=== PATIENT | female | born 1965 | race Caucasian/White ===

== ENCOUNTER → 2016-04-15 | Outpatient (CLI) | payer OTHER | END | disposition disaster alternative care site (69) | LOC: LFPA 15:32 | DX: R10.11 Right upper quadrant pain (principal) ==

== ENCOUNTER → 2016-04-17 | Outpatient (CLI) | payer OTHER | END | disposition disaster alternative care site (69) | LOC: GRAD 09:30 | DX: R74.8 Abnormal levels of other serum enzymes (principal); N28.9 Disorder of kidney and ureter, unspecified; K76.9 Liver disease, unspecified ==

== ENCOUNTER → 2016-05-28 | Outpatient (CLI) | payer OTHER | LOC: LFPA 14:34 | DX: R20.2 Paresthesia of skin (principal) ==

== ENCOUNTER → 2016-10-29 | Outpatient (CLI) | payer OTHER | END | disposition disaster alternative care site (69) | LOC: GRAD 10-25 08:30 | DX: K76.9 Liver disease, unspecified (principal) ==